=== PATIENT | female | born 1940 | race Caucasian/White ===

== ENCOUNTER → 2016-08-30 | Day surgery (SDC) | payer MEDICARE, OTHER ==
[~2016-08-30] MED LIST: FLUOXETINE HCL20 M1 PO; LISINOPRIL10 MG PO; WELCHOL625 M1 PO
--- NOTE | ~2016-08-30 | OR ---
Unit #: [id number] #: [id number] Patient: MARIELLE GASTON [id number] [address] [address] [id number] O MR#: [id number] NAME: MARIELLE GASTON. ROOM: Date of Procedure: 08/30/2016 Admission Date: 08/30/2016 Surgeon: Gerald Munoz M.D. : 1940 Attending Physician: Gerald Munoz M.D. Referring Physician: Gerald Munoz M.D. Primary Care Physician: Solo Jones Jr., M.D. OPERATIVE REPORT PROCEDURE PERFORMED Colonoscopy with biopsy. INDICATIONS FOR PROCEDURE Average risk for colorectal cancer. MEDICATIONS Monitored anesthesia. POSTOPERATIVE FINDINGS 1. There was a nodule like swelling in the sigmoid colon, possible lipoma versus polyp, biopsies taken. 2. Diverticulosis. 3. Prep was poor. PLAN Followup on the pathology report. Repeat colonoscopy in 5 years. DESCRIPTION OF PROCEDURE The patient was explained of the procedure, risks, and benefits along with risks and benefits of anesthesia. She was brought to the endoscopy room. Propofol anesthesia was given. Rectal exam was done, which was normal. Colonoscope was lubricated, passed up the rectum, advanced under direct vision all the way to the cecum. Cecum was identified by ileocecal valve and appendiceal orifice. I then started to pull the scope out carefully looking. Diverticulosis noted. Small lipoma was seen. Polyp seen in sigmoid colon. Biopsies taken. I retroflexed in the rectum, small hemorrhoids seen. The scope was gently pulled out. She tolerated it well. Dictated by... Gumaro Chan/kaitlin TD: 08/31/2016 01:36 JOB #: [id number] Unit #: [id number] #: [id number] Patient: MARIELLE GASTON OPERATIVE REPORT Page 1 of 1 X Gerald Munoz MD PROCEDURE OPERATIVE NOTE
== END | disposition home or self-care (01) ==
LOC: COPS 08:48
DX: Z12.11 Encounter for screening for malignant neoplasm of colon (principal); K57.30 Diverticulosis of large intestine without perforation or abscess without bleeding; F41.9 Anxiety disorder, unspecified; I10 Essential (primary) hypertension; E78.5 Hyperlipidemia, unspecified; Z88.8 Allergy status to other drugs, medicaments and biological substances; Z88.1 Allergy status to other antibiotic agents; Z79.899 Other long term (current) drug therapy; Z90.13 Acquired absence of bilateral breasts and nipples
CPT/HCPCS: 88305

== ENCOUNTER → 2016-09-13 | Outpatient (CLI) | payer MEDICARE, OTHER ==
--- NOTE | ~2016-09-13 | BD1 ---
[facility] A Service of [facility] RADIOLOGY TEXT RESULTS PATIENT: MARIELLE GASTON LOCATION: [facility] : 44 UNIT #: [id number] AGE: [address]: Solo Jones MD SEX: F ORDER DR: [id number] [facility] [address] [place], [place] [address] [id number] O MR#: [id number] Acc #: [id number] NAME: MARIELLE GASTON : 1940 SEX: F STUDY DATE/TIME: 09/13/2016 12:27 UNIT: [facility] ROOM: STUDY DESCRIPTION: BD Dexa Bone Dens 1+ Site Attending Physician: Solo Jones Jr., M.D. Referring Physician: Solo Jones Jr., M.D. Ordering Physician: Solo Jones Jr., M.D. Primary Care Physician: Solo Jones Jr., M.D. MEDICAL IMAGING REPORT This report is preliminary unless electronic signature is present EXAM DXA scan, 09/13/2016 HISTORY Status post menopause with no hormone replacement therapy. Osteopenia. Hysterectomy at age 39. Hypertension with blood pressure medication for 16 years. FINDINGS Bone mineral density in the lumbar spine from L1 through L4 is .92 g/cm2 which is 1.2 standard deviations below the mean when compared to the young adult reference population which is characteristic of osteopenia. This is 1.2 standard deviations above the mean when compared to the age-matched population. Bone mineral density in the left femoral neck was 0.581 g/cm2 which is 2.4 standard deviations below the mean when compared to the young adult reference population which is characteristic of osteopenia. This is 0.4 standard deviations below the mean when compared to the age-matched population. IMPRESSION Bone mineral density in the lumbar spine and left hip characteristic of osteopenia. Dictated by... Walker Champion M.D. THIS IS AN ELECTRONICALLY VERIFIED REPORT Walker Champion M.D. at 09/17/2016 2:12 PM MINDY/megha TD: 09/17/2016 04:12 [facility] A Service of [facility] RADIOLOGY TEXT RESULTS PATIENT: MARIELLE GASTON LOCATION: [facility] : 44 UNIT #: [id number] AGE: [address]: Solo Jones MD SEX: F ORDER DR: JOB #: [id number] MEDICAL IMAGING REPORT Page 1 of 1 COPY
== END | disposition home or self-care (01) ==
LOC: CWCC 11:52
DX: Z13.820 Encounter for screening for osteoporosis (principal); Z78.0 Asymptomatic menopausal state; M85.89 Other specified disorders of bone density and structure, multiple sites
CPT/HCPCS: 77080